=== PATIENT | female | born 1945 ===

== ENCOUNTER 2019-08-29 07:30 | Observation (INO) ==
[2020-02-04] MEDS ORDERED: Buffered Lidocaine 1% SYRIN 1 ml INTRADERM ONE (06:00)
[2020-02-04] MEDS ORDERED: Lactated Ringers 1000 ml BAG 1,000 ML IV SCH (06:00)
[2020-02-04] MEDS ORDERED: Lidocaine 2% PF 5 ML VIAL ONE ×2 (06:47→07:11)
[2020-02-04] MEDS ORDERED: Dexmedetomidine 200 mcg/2 ml 2 ml VIAL (200 mcg) ONE (06:47)
[2020-02-04] MEDS ORDERED: ROPIVACAINE 5 MG/ML 30 ML BTL (0.5%) ONE ×2 (06:47→07:50)
[2020-02-04] MEDS ORDERED: Midazolam 2 mg/2 ml VIAL 1 mg/ml 2 ml VIAL (2 mg) ONE ×2 (06:48→07:12)
[2020-02-04] MEDS ORDERED: ceFAZolin 2 GM PREMIX 2 GM/50 ML BAG ONE (07:03)
[2020-02-04] MEDS ORDERED: Dexamethasone IV 4 MG/ML VIAL 1 ml VIAL ONE (07:11)
[2020-02-04] MEDS ORDERED: Propofol 10 MG/ML 20 ML BTL ONE (07:11)
[2020-02-04] MEDS ORDERED: fentaNYL 100 mcg/2 ml 50 MCG/ML VIAL ONE (07:11)
[2020-02-04] MEDS ORDERED: Clindamycin 900 MG/D5W BAG 900 MG/50 ML BAG IVPB ONE (08:03)
[2020-02-04] MEDS ORDERED: DiMENhydriNATE IV 50 mg/ml 1 ml VIAL IV PUSH PRN (08:33)
[2020-02-04] MEDS ORDERED: Naloxone 0.4 mg VIAL 0.4 mg/ml 1 ml VIAL IV PRN (08:33)
[2020-02-04] MEDS ORDERED: fentaNYL 100 mcg/2 ml 50 MCG/ML VIAL IV PRN (08:33)
[2020-02-04] MEDS ORDERED: Phenylephrine IV 10 MG/ML 1 ml VIAL ONE (08:57)
[2020-02-04] MEDS ORDERED: EPHEDrine (Pressors) 50 MG/ML VIAL ONE ×2 (09:13)
[2020-02-04] MEDS ORDERED: diPHENhydraMINE 25 mg TAB PO PRN (10:35)
[2020-02-04] MEDS ORDERED: Ondansetron 4 mg VIAL 2 MG/ML 2 ml VIAL IV PRN (10:35)
[2020-02-04] MEDS ORDERED: oxyCODONE/Acetamin 5/325 mg TAB PO PRN (10:35)
[2020-02-04] MEDS ORDERED: Magnesium Hydroxide LIQ 30 ML UDC PO PRN (10:35)
[2020-02-04] MEDS ORDERED: Ondansetron ODT 4 mg TAB 4 MG TAB PO PRN (10:35)
[2020-02-04] MEDS ORDERED: Morphine 2 MG/ML SYRINGE IV PRN (10:35)
[2020-02-04] MEDS ORDERED: Lactulose 30 ml UDC PO PRN (10:35)
[2020-02-04] MEDS ORDERED: diPHENhydraMINE IV 50 MG/ML 1 ml VIAL (BENADRYL) IV PRN (10:35)
[2020-02-04] MEDS ORDERED: Dextrose 50% Syringe 50 ml 25 GM/50 ML SYRINGE IV PUSH PRN (11:43)
[2020-02-04] MEDS: Lactated Ringers 1000 ml BAG 1,000 ML IV SCH (12:01)
[2020-02-04] MEDS: oxyCODONE/Acetamin 5/325 mg TAB PO PRN (12:53)
[2020-02-04] MEDS ORDERED: Bupivacaine 0.5% SDV PF 30ML VIAL ONE (14:19)
[2020-02-04] MEDS ORDERED: Ondansetron 4 mg VIAL 2 MG/ML 2 ml VIAL ONE (14:19)
[2020-02-04] MEDS: Clindamycin 600 MG/D5W BAG 600 MG/50 ML BAG IV SCH (16:22)
[2020-02-04] MEDS: Magnesium Hydroxide LIQ 30 ML UDC PO SCH (20:57)
[2020-02-05] MEDS: Clindamycin 600 MG/D5W BAG 600 MG/50 ML BAG IV SCH ×2 (00:06→08:48)
[2020-02-05] MEDS: oxyCODONE/Acetamin 5/325 mg TAB PO PRN ×3 (00:06→13:51)
[2020-02-05] MEDS: Lactated Ringers 1000 ml BAG 1,000 ML IV SCH (00:10)
[2020-02-05 08:33] LABS: BUN/Creatinine Ratio 43.9 (8-20); Calcium 8.8 mg/dL (8.6-10.3); EGFR African American 106.5 (>60); Potassium 4.3 mmol/L (3.5-5.0)
[2020-02-05] MEDS: Magnesium Hydroxide LIQ 30 ML UDC PO SCH (08:47)
[2020-02-05 08:53] LABS: Hematocrit 36 % (35-47); Hemoglobin 12.6 g/dL (12.0-16.0); Platelet Count Platelets clumped. 10^3/uL (150-450)
[2020-02-05] MEDS ORDERED: Vitamin THERAPEUTIC TAB PO SCH (09:00)
[2020-02-05] MEDS ORDERED: Insulin GLARGINE 100 un/ml 10 ml VIAL SUBCUT SCH (09:00)
[2020-02-05 11:34] VITALS: BP 131/59
[2020-02-05 14:17] LABS: Mean Platelet Volume 6.2 fL (7.4-10.4); Platelet Count 198 10^3/uL (150-450)
== END 2020-02-05 14:45 | disposition home or self-care (01) ==
LOC: AA 02-04 06:05 → INTOOBSV 02-04 06:05 → SSU 02-04 11:37
PROVIDERS: ADMIT Orthopaedic Surgery Adult Reconstructive Orthopaedic Surgery; ATTEND Orthopaedic Surgery Adult Reconstructive Orthopaedic Surgery